=== PATIENT | female | born 1950 | race Caucasian/White ===

== ENCOUNTER 2017-11-11 08:00 | Emergency (ER) | payer OTHER ==
[2017-11-11] MEDS: KETOROLAC 30 MG INJ IM (08:37)
== END 2017-11-11 09:54 | disposition home or self-care (01) ==
LOC: FTE 09:54
DX: M25.561 Pain in right knee (principal); Z85.3 Personal history of malignant neoplasm of breast
CPT/HCPCS: 73562; 96372; 99284-25

== ENCOUNTER 2018-03-14 16:50 | Inpatient (IN) | payer OTHER ==
[2018-03-14 19:13] LABS: ADD MAN DIFF? NO
[2018-03-14] MEDS: SOD CHLORIDE 0.9% 500 ML IV (19:13)
[2018-03-14] MEDS: ASPIRIN 81 MG TAB PO (19:13)
[2018-03-14] MEDS: KETOROLAC 15 MG INJ IV (19:13)
[2018-03-14] MEDS: NITROGLYCERIN (SL) 0.4 MG TAB SL (19:14)
[2018-03-14 19:17] LABS: BASOPHILS % 0.4 % (0.0-2.0); EOSINOPHILS # 0.3 10^3/ul (0.0-0.5); EOSINOPHILS % 3.8 % (0.0-7.0); HEMATOCRIT 40.2 % (37.0-47.0); HEMOGLOBIN 13.7 g/dl (12.0-16.0); LYMPHOCYTES # 2.5 10^3/ul (0.8-2.9); LYMPHOCYTES % 34.6 % (15.0-51.0); MEAN CORPUSCULAR HEMOGLOBIN 28.8 pg (29.0-33.0); MEAN CORPUSCULAR HGB CONC 34.1 g/dl (32.0-37.0); MEAN CORPUSCULAR VOLUME 84.5 fl (82.0-101.0); MEAN PLATELET VOLUME 9.8 fl (7.4-10.4); MONOCYTE # 0.5 10^3/ul (0.3-0.9); MONOCYTES % 7.5 % (0.0-11.0); NEUTROPHIL # 3.8 10^3/ul (1.6-7.5); NEUTROPHILS % 53.4 % (39.0-77.0); PLATELET COUNT 258 10^3/UL (140-415); RED BLOOD COUNT 4.76 10^6/ul (4.20-5.40); RED CELL DISTRIBUTION WIDTH 13.2 % (11.5-14.5)
[2018-03-14 19:17] LABS: WHITE BLOOD COUNT 7.1 10^3/ul (4.8-10.8)
[2018-03-14 19:54] LABS: ALANINE AMINOTRANSFERASE 36 IU/L (13-69); ALBUMIN 4.7 g/dl (3.3-4.9); ALBUMIN/GLOBULIN RATIO 1.34; ALKALINE PHOSPHATASE 102 IU/L (42-121); ANION GAP 16 (8-16); ASPARTATE AMINO TRANSFERASE 37 IU/L (15-46); BILIRUBIN,INDIRECT 0.2 mg/dl (0-1.1); BILIRUBIN,TOTAL 0.2 mg/dl (0.2-1.3); BLOOD UREA NITROGEN 13 mg/dl (7-20); CALCIUM 9.6 mg/dl (8.4-10.2); CARBON DIOXIDE 27 mmol/L (21-31); CHLORIDE 104 mmol/L (97-110); GLUCOSE 102 mg/dl (70-220); LIPASE 84 U/L (23-300); POTASSIUM 3.7 mmol/L (3.5-5.1); SODIUM 143 mmol/L (135-144); TOTAL PROTEIN 8.2 g/dl (6.1-8.1)
[2018-03-14 20:05] LABS: TROPONIN-I < 0.010 ng/ml (0.000-0.120)
[2018-03-14] MEDS ORDERED: ONDANSETRON 4 MG INJ IV (20:30)
[2018-03-14] MEDS ORDERED: NACL 0.9% 3 ML SYG IV (20:30)
[2018-03-14] MEDS ORDERED: NITROGLYCERIN (SL) 0.4 MG TAB SL (20:30)
[2018-03-15] MEDS ORDERED: hydrALAzine 20 MG INJ IV
[2018-03-15 06:24] LABS: ADD MAN DIFF? NO
[2018-03-15 06:29] LABS: BASOPHILS % 0.5 % (0.0-2.0); EOSINOPHILS # 0.4 10^3/ul (0.0-0.5); EOSINOPHILS % 7.1 % (0.0-7.0); HEMATOCRIT 37.7 % (37.0-47.0); LYMPHOCYTES # 2.2 10^3/ul (0.8-2.9); LYMPHOCYTES % 37.5 % (15.0-51.0); MEAN CORPUSCULAR HEMOGLOBIN 28.9 pg (29.0-33.0); MEAN CORPUSCULAR HGB CONC 34.5 g/dl (32.0-37.0); MEAN CORPUSCULAR VOLUME 83.8 fl (82.0-101.0); MEAN PLATELET VOLUME 9.9 fl (7.4-10.4); MONOCYTE # 0.5 10^3/ul (0.3-0.9); MONOCYTES % 8.3 % (0.0-11.0); NEUTROPHIL # 2.7 10^3/ul (1.6-7.5); NEUTROPHILS % 46.4 % (39.0-77.0); PLATELET COUNT 232 10^3/UL (140-415); RED CELL DISTRIBUTION WIDTH 13.2 % (11.5-14.5)
[2018-03-15 06:29] LABS: WHITE BLOOD COUNT 5.8 10^3/ul (4.8-10.8)
[2018-03-15 07:02] LABS: ALANINE AMINOTRANSFERASE 37 IU/L (13-69); ALBUMIN 3.7 g/dl (3.3-4.9); ALBUMIN/GLOBULIN RATIO 1.23; ALKALINE PHOSPHATASE 82 IU/L (42-121); ANION GAP 11 (8-16); ASPARTATE AMINO TRANSFERASE 33 IU/L (15-46); BILIRUBIN,INDIRECT 0.3 mg/dl (0-1.1); BILIRUBIN,TOTAL 0.3 mg/dl (0.2-1.3); BLOOD UREA NITROGEN 13 mg/dl (7-20); CARBON DIOXIDE 26 mmol/L (21-31); CHLORIDE 107 mmol/L (97-110); CHOL/HDL RATIO 6.8 RATIO; CHOLESTEROL 177 mg/dl (100-200); CREATININE 0.51 mg/dl (0.44-1.00); GLUCOSE 106 mg/dl (70-220); HDL CHOLESTEROL 26 mg/dl (35-98); LDL CHOLESTEROL,CALCULATED 122 mg/dl; MAGNESIUM 1.9 mg/dl (1.7-2.5); POTASSIUM 3.9 mmol/L (3.5-5.1); SODIUM 140 mmol/L (135-144); TOTAL PROTEIN 6.7 g/dl (6.1-8.1); TRIGLYCERIDES 147 mg/dl (0-149)
[2018-03-15] MEDS: ACETAMINOPHEN 325 MG TAB PO ×2 (07:25→14:58)
[2018-03-15 08:21] LABS: HEMOGLOBIN A1C 6.2 % (0-5.9)
[2018-03-15 11:46] LABS: CREATINE KINASE 116 IU/L (23-200)
[2018-03-15 11:56] LABS: CK INDEX 0.4; CK-MB 0.48 ng/ml (0.0-2.4); TROPONIN-I < 0.010 ng/ml (0.000-0.120)
[2018-03-15 14:32] LABS: CREATINE KINASE 128 IU/L (23-200)
[2018-03-15 14:43] LABS: CK INDEX 0.3; CK-MB 0.43 ng/ml (0.0-2.4); TROPONIN-I < 0.010 ng/ml (0.000-0.120)
[2018-03-16] MEDS: LORAZEPAM 0.5 MG TAB PO (00:07)
[2018-03-16] MEDS: AL HYDROX/MG HYDROX/SIMETH 30 ML CUP PO (00:25)
[2018-03-16] MEDS: PANTOPRAZOLE (EC) 40 MG TAB PO (06:05)
[2018-03-16] MEDS: traMADol 50 MG TAB PO (12:41)
[2018-03-17] MEDS: PANTOPRAZOLE (EC) 40 MG TAB PO (06:47)
[2018-03-17] MEDS: SALINE 0.65% 45 ML NAS SPRAY NASAL (11:59)
[2018-03-17] MEDS: LORATADINE 10 MG TAB PO (11:59)
== END 2018-03-17 14:10 | disposition home or self-care (01) | DRG 313 ==
LOC: TEL 20:58 → E/R 16:50 → TEL 20:22
DX: R07.9 Chest pain, unspecified (principal); M17.0 Bilateral primary osteoarthritis of knee; R51 Headache; R91.8 Other nonspecific abnormal finding of lung field; E66.9 Obesity, unspecified; Z68.30 Body mass index [BMI] 30.0-30.9, adult; Z85.3 Personal history of malignant neoplasm of breast; Z79.1 Long term (current) use of non-steroidal anti-inflammatories (NSAID)
CPT/HCPCS: 36415; 71045; 80053; 80061; 82550; 82553; 83036; 83690; 83735; 84443; 84484; 85025; 93005; 93306; 96361; 96374; 99285-25